=== PATIENT | female | born 2000 | race Caucasian/White ===

== ENCOUNTER 2023-07-22 | Inpatient (IN) | payer BC, SELFPAY ==
[2023-07-21 22:54] VITALS: BP 138/82; PULSE 55; PULSE 58; RESP 16; TEMP 37.2; O2SAT 98
[2023-07-21 23:49] LABS: Amnisure Rom* POSITIVE
[2023-07-22] VITALS (37 sets, daily range): BP systolic 97–138; BP diastolic 54–90; PULSE 50–97; RESP 14–16; TEMP 36.6–36.9; O2SAT 96–100
--- NOTE | 2023-07-22 00:03 | PM.OBHPLI ---
OB - H&P: HPI Labor/Induction History of Present Illness Date Seen: 07/22/23 Chief Complaint: The patient is a 23 year old 2 para 1 at 38+2 weeks gestation by US dating, who presents with painful regular contractions and had SROM while in triage. Chief complaint: maternity : 2 Para: 1 Narrative: Celso Hagan is a 23 year old at 38+2 weeks by first trimester US dating who began having regular contractions every 5-10 minutes around 6 pm. Upon arrival to labor and delivery, contractions palpating mild, cervix 1 cm dilated, posterior, 0 station per RN. While being monitored for cervical change, she had SROM of clear fluid with + amnisure. Her contractions are now more intense since SROM. She has a history of preeclampsia with severe features with her first , she has been on prophylactic ASA throughout this . No headache, vision changes, epigastric/RUQ pain or swelling. Home BP monitoring has been within normal range. History of Present Dating criteria: based on 1st trimester US only care: good care Ultrasounds: normal 1st trimester US and normal mid trimester US Medical complications: none Labs Blood type: A (+) positive Rubella: immune RPR/VDLR: nonreactive GBS status: negative HBsAG: negative Review of Systems Status of ROS: Reports: 6 or more systems reviewed and unremarkable except as noted in History and below Meds Home Medications and Allergies Home Medications Medication Instructions Recorded Confirmed Type aspirin 81 mg tablet,delayed 81 mg PO QDAY 04/02/23 07/21/23 History release (Adult Aspirin Regimen) fluoxetine 20 mg capsule 20 mg PO QDAY 04/02/23 07/21/23 History vits no.126-ferrous fum 1 tab PO QDAY 04/02/23 07/21/23 History 28 mg iron-folic acid 800 mcg tablet (Classic ) Allergies Allergy/AdvReac Type Severity Reaction Status Date / Time No Known Drug Allergies Allergy Verified 07/05/23 08:32 OB - H&P: Exam Physical Exam: Vital signs: Temp Pulse Resp BP Pulse Ox 98.9 F 55 L 16 138/82 98 07/21/23 22:54 07/21/23 22:54 07/21/23 22:54 07/21/23 22:54 07/21/23 22:54 Constitutional: Constitutional: no acute distress Routine HEENT Exam: Head: Present atraumatic Eye: Present EOMI and PERRL ENT: Present mucous membranes moist Routine Neck Exam: Neck: Present full ROM Routine Respiratory Exam: Respiratory: Present CTA bilaterally Routine Cardiovascular Exam: Cardiovascular: RRR Comments: no murmur Detailed Labor and Delivery Exam: Patient Gravid: Yes Dilation (cm): 1 Cervix position: posterior Contraction frequency (min): 3 Fetus (Single): Station: 0 Heart Rate Baseline: 140 Monitor Accelerations: Present Monitor Decelerations: None Accountant Machine Processing Variability: Moderate (6-25) Routine Extremities Exam: Comments: no swelling or tenderness Routine Skin Exam: Present intact and normal turgor Routine Neurological Exam: Present alert, oriented X3 and CN II-XII intact Routine Psychiatric Exam: Present normal affect and normal thought process OB - Problem Based A/P Additional Plan (1) Term : Status: Acute (2) SROM (spontaneous rupture of membranes): Status: Acute (3) History of severe pre-eclampsia: Status: Acute Plan Term with SROM. Consult human resource analyst for repeat Delivery/Labor/Induction Plan Plan: Section
[2023-07-22] MEDS: LACTATED RINGERS 1000 ML 1,000 ML 1200 ML IV (00:15)
--- NOTE | 2023-07-22 00:31 | PM.OBCN1 ---
OB - CN: HPI Date of Consult Time Seen by Provider: 00:31 Date Seen: 07/22/23 Patient: [facility]oni Patient Consult date: 07/22/23 Requesting Physician: Gretchen Jang MD Primary Care Provider: Gretchen Jang MD Consult Narrative Narrative: Ms. Hagan is a 23yo admitted for RAMONITA with SROM at 38w2d GA. She is an established patient of [facility], Ob consulted by Dr. Jang for . is complicated by history of preeclampsia with SF necessitating delivery at 32 weeks in prior and prior delivery. Full H&P will be dictated by Dr. Jang today, prior Ob consult notes by Drs. La and Maryjo. [facility] of regular/painful contractions tonight at 1900. At present, they are occurring every 2-5 minutes and rated 8/10 in severity. She has associated emesis with contractions. Denies vaginal bleeding. SROM occurred in triage with clear fluid, bloody show. Endorses active movement. Ultrasounds: 01/01/2023 crown-rump length corresponding to 9 weeks, 6 days, sonographic JALEEL 07/30/2023. Small subchorionic hemorrhage measuring 2.5 cm in greatest dimension. 03/17/2023: EFW 37%, normal anatomy, anterior placenta without previa. 07/08/23: 2688g, 34[facility]ile at [facility] History History 2 Elective abortions Para 2 Spontaneous abortions Hx # Term Pregnancies Ectopic pregnancies Hx # Pregnancies Multiple births Number of Living Children 1 Labs Blood type: A (+) positive Rubella: immune RPR/VDLR: nonreactive GBS status: negative HBsAG: negative PFSH PFSH Medical History (Updated 07/22/23 @ 00:10 by Gretchen Jang MD) Depression ?F32.A - Depression, unspecified (ICD-10) Surgical History (Updated 07/22/23 @ 00:10 by Gretchen Jang MD) History of ?Z98.891 - History of uterine scar from previous surgery (ICD-10) Social History What is your current living situation?: I presently have a place to live Problems where you live: no known problems In the past 12 months, utilities in danger of being shut off: no In past 12 months, lack of transportation kept you from medical appts, meetings, work, or getting things needed for daily living: no In the past 12 mos, have been you worried that your food would run out before you had money to buy more?: never true In the past 12 mos, the food you bought just didn't last and you didn't have money to buy more?: never true Smoking Status: Current some day smoker How often does anyone, including family, friends and others, physically hurt you: never How often does anyone, including family, friends and others, insult or talk down to you: never How often does anyone, including family, friends and others, threaten you with harm: never How often does anyone, including family, friends and others, scream or curse at you: never Meds Home Medications and Allergies Home Medications Medication Instructions Recorded Confirmed Type aspirin 81 mg tablet,delayed 81 mg PO QDAY 04/02/23 07/21/23 History release (Adult Aspirin Regimen) fluoxetine 20 mg capsule 20 mg PO QDAY 04/02/23 07/21/23 History vits no.126-ferrous fum 1 tab PO QDAY 04/02/23 07/21/23 History 28 mg iron-folic acid 800 mcg tablet (Classic ) Allergies Allergy/AdvReac Type Severity Reaction Status Date / Time No Known Drug Allergies Allergy Verified 07/05/23 08:32 OB - H&P: Exam Physical Exam: Vital signs: Temp Pulse Resp BP Pulse Ox 98.9 F 55 L 16 138/82 98 07/21/23 22:54 07/21/23 22:54 07/21/23 22:54 07/21/23 22:54 07/21/23 22:54 Narrative: General: Alert and oriented, in pain with contractions. Intermittent emesis. Abdomen: Gravid. Non-tender to palpation throughout. Fetus palpates cephalic, EFW 3000g by Chuck's. Prior Pfannensteil incision is noted to be 1.5 cm above the pubic symphysis. It is shifted to right of midline, downward slanting toward her ASIS. Midline to right sided keloid is noted. The right superior margin is somewhat raised above the level of incision. Cervix: 1/posterior/0 per RN exam Amnisure positive. OB - CN: A/P Assessment and Plan (1) Term : Status: Acute (2) SROM (spontaneous rupture of membranes): Status: Acute (3) History of severe pre-eclampsia: Status: Acute Plan Ms. Hagan is a 23yo at 38w2d GA admitted for repeat in the setting of spontaneous onset of labor with SROM. is complicated by prior and history of preE with severe features necessitating delivery at 32 weeks. She is an established patient of [facility], please see Dr. Jang's H&P note for complete details. She has been seen by Drs. La and Maryjo antenatally. She notes she is dissatisfied with her prior incision, due to it slanting and being raised. She specifically points to superior to the right margin as a site that bothers her as it is raised, explained this elevated subcutaneous tissue superior to the incision unlikely to be changed with a scar revision. I can certainly excise her prior scar and perform scar revision, but explained the limitations of revising the location/angle of her prior incision and that a keloid may form. Ultimately, Celso notes this is not a great priority of hers and will defer potential scar revision to my decision intraoperatively. - Proceed with repeat delivery - Perioperative ancef and azithromycin - Admission CBC and T/S pending - BT A+ - GBS negative
[2023-07-22 00:32] LABS: Basophils Absolute Auto 0.02 K/uL (0.00-0.30); Basophils Percent Auto 0.2 % (0.0-3.0); Eosinophils Absolute Auto 0.03 K/uL (0.00-0.50); Eosinophils Percent Auto 0.3 % (0.0-7.0); Hemoglobin* 12.8 gm/dL (12.0-16.0); Immature Granulocytes Abs Auto 0.02 K/uL (0.00-0.30); Immature Granulocytes Pct Auto 0.2 %; Lymphocytes Absolute Auto 2.79 K/uL (0.90-2.90); Lymphocytes Percent Auto 26.1 % (20-44); Mean Corpuscular HGB Conc 35 gm/dL (32-36); Mean Corpuscular Hemoglobin 31 pg (26-34); Mean Corpuscular Volume 91 fL (80-100); Monocytes Percent Auto 6.7 % (0.0-11.0); Neutrophils Absolute Auto 7.09 K/uL (1.7-7.0); Neutrophils Percent Auto 66.5 % (42.0-72.0); Platelet Count* 244 K/uL (140-440); RDW Coefficient of Variation % 11.9 % (11.5-15.5); Red Blood Count 4.07 m/uL (4.00-5.20); White Blood Count* 10.67 K/uL (4.50-11.00)
[2023-07-22 00:43] LABS: Slide Review Reflex No
[2023-07-22] MEDS: AZITHROMYCIN 500 MG in 0.9 % SODIUM CHLORIDE 250 ml 250 ML 255 MG IVPB (01:21)
[2023-07-22] MEDS: CEFAZOLIN 2 GM INJ IVP (01:22)
[2023-07-22] MEDS: LACTATED RINGERS 1000 ML 1,000 ML 100 ML IV (01:26)
--- NOTE | 2023-07-22 02:34 | P.OBPRC_ITS ---
Procedure Time Seen by Provider: 02:34 Date of procedure: 07/22/23 Pre-op diagnosis: 38 weeks, prior , spontaneous onset of labor Post-op diagnosis: same Procedure Done: only Will [facility] bill your pro fee for this procedure?: Yes Blood Loss Measurement Type: QBL (8985) Bakri Used: No IV fluids (mL): 1,700 Urine Output (mL): 25 Surgeon: Susan Zuniga MD Anesthesia Type: Spinal Findings: Moderate adhesive disease between rectus abdominis muscles and fascia Unremarkable uterus, bilateral fallopian tubes and ovaries, no significant intraabdominal adhesions Procedure Name: Repeat delivery Procedure Description: Patient was taken to the operating room with IV running. She received cefazolin and azithromycin in preoperative prophylaxis. Spinal anesthesia was administered. Trejo catheter was inserted. She was prepped and draped in the usual sterile fashion. Anesthesia was tested and found to be adequate. Prior Pfannenstiel incision was noted to be shifted to the right and to be quite low. Planned incision was marked to be more midline (though still slightly shifted to right as to not create an even larger incision) and superior along her prior Pfannenstiel site. A low-transverse skin incision was made with a scalpel and carried through to the underlying layer of fascia with the scalpel. The subcutaneous fat was dissected off the underlying fascia with Bovie and blunt dissection. The fascia was nicked in the midline with a scalpel, and this incision was extended laterally with scissors. The rectus muscles were noted to be adhered to rectus fascia with frayed musculature in areas. The rectus muscles were in the midline. Peritoneum was identified and entered bluntly. Bovie was used to widen this opening laterally. Rikki O retractor was inserted and tightened down, providing excellent visualization of the lower uterine segment. The bladder reflection was found to be advanced along the lower uterine segment. A bladder flap was created with a combination of sharp and blunt dissection. Low-transverse uterine incision was made with a scalpel. Incision was widened bluntly. The infant's head was grasped through the hysterotomy and elevated to the hysterotomy, delivered with aid of fundal pressure. The remainder of the body delivered without incident with the help of fundal pressure. No nuchal cord was noted. Cord was clamped and cut after 30 seconds. was handed off to attending nurses. The placenta was delivered with gentle traction on the cord. The uterus was exteriorized and cleaned of all clots and debris with a dry lap pad. The hysterotomy was reapproximated with 0 Vicryl in a running, locked fashion. A small arterial vessel was noted to be bleeding just inferior and lateral to right hysterotomy margin, where an interrupted stitch was applied around this for hemostasis. Uterine atony was noted, treated with IM methergine and IV TXA. Second layer of the same suture was used in imbricating fashion to obtain hemostasis. The uterus was reintroduced to the abdominal cavity. Oozing was noted at the midline hysterotomy, where two additional figure of eight sutures were applied. Excellent hemostasis was noted. The adnexa were examined and noted to be normal in appearance. The cul-de-sac and gutters were cleansed with dampened laparotomy sponge, removing any further clots and debris. Patient had significant nausea and vomiting throughout case, making visualization challenging. She was treated with zofran, dexamethasone and eventually haldol per HARVEST CREW SUPERVISOR to aid with emesis. Hysterotomy was reexamined and found to be hemostatic. The Rikki O retractor was removed. The hysterotomy was again examined and noted to be dry, Joseluis applied across hysterotomy. The rectus fascia was elevated and underlying muscles were sequentially examined and hemostasis was assured with aid of electrocautery. A fish was utilized to protect underlying intraabdominal contents. The fascia was reapproximated with 0 Vicryl in a running fashion. Fish removed prior to completion of fascia closure. Subcutaneous fat was irrigated and Bovie used on oozing vessels. The subcutaneous fat was reapproximated with 2 0 vicryl suture in an interrupted fashion. Patient ultimately desired to defer scar revision as was previously planned due to nausea, vomiting and discomfort intraoperatively. The skin was closed with a subcuticular stitch of 3-0 monocryl. Surgical glue was applied above this. Patient tolerated procedure well was taken to recovery area in stable condition. Surgical debrief was completed. details: - Liveborn female fetus - weight: 2980g - APGARs were 8 and 9 at 1 and 5 minutes respectively Pathology: specimen obtained, sent to pathology Surgery Debrief Performed: Yes Condition: stable Disposition: floor total score - 1 minute: 8 total score - 5 minute: 9
--- NOTE | 2023-07-22 03:09 | W.ANESCHARGE ---
Anesthesia Charges Start Date/Time Anesthesia Start Date: 07/22/23 Anesthesia Start Time: 00:54 Stop Date/Time Anesthesia Stop Date: 07/22/23 Anesthesia Stop Time: 02:49 Summary Emergency: SENIOR INTEGRATION DEVELOPER
--- NOTE | 2023-07-22 03:10 | W.PM.NB ---
Nerve Block Nerve Block Time Seen by Provider: 02:35 Date Seen: 07/22/23 Type of block requested by surgeon for post-operative analgesia: TAP Side: bilateral Time out performed: Yes Verification of patient name: Yes Verification of date of : Yes Site marking: site marked Name of person performing procedure: Rick Mitchell Continuous monitoring Was continuous monitoring of O2 sat, B/P, three dimensional map modeler, recorded every 15 minutes?: Yes Procedure Checklist: sterile prep, needles and gloves Ultrasound guided. Images saved: Yes Medications given in 5ml increments after negative aspiration: Marcaine %: 0.25 mL: 30 Needle gauge: 20 and Exparel mL: 10 Needle gauge: 20 Patient tolerated procedure well: Yes Additional comments: Injected in 5 mL increments after negative aspiration Block Charges Block Charge (with Pro Fee): TAP Bilateral Use of Ultrasound Machine for Block: Yes- US Guidance/pain block
[2023-07-22] MEDS: KETOROLAC 30 MG/ML inj IVP ×3 (09:13→20:15)
[2023-07-22] MEDS: DOCUSATE SODIUM 100 MG CAPSULE PO (09:15)
[2023-07-22 11:20] LABS: Hemoglobin* 11.4 gm/dL (12.0-16.0)
[2023-07-22] MEDS: LACTATED RINGERS 1000 ML 1,000 ML 125 ML IV (12:14)
[2023-07-22] MEDS: ACETAMINOPHEN 500 MG TABLET 1000 MG PO ×2 (13:31→23:07)
[2023-07-22] MEDS: SODIUM CHLORIDE 0.9 % (FLUSH) 10 ML SYRINGE IVF ×2 (16:14→20:15)
[2023-07-23 00:11] VITALS: RESP 16; O2SAT 98
[2023-07-23 01:11] VITALS: RESP 16; O2SAT 97
[2023-07-23 04:00] VITALS: BP 139/80; PULSE 70; RESP 16; TEMP 36.9; O2SAT 98
[2023-07-23 06:00] LABS: Hemoglobin* 9.3 gm/dL (12.0-16.0)
[2023-07-23 07:30] VITALS: BP 118/71; PULSE 59; RESP 16; TEMP 36.8; O2SAT 97
--- NOTE | 2023-07-23 07:50 | PM.OBPNVD1 ---
OB - PN:Subj Subjective Time Seen by Provider: 07:50 Date Seen: 07/23/23 Narrative: Overnight patient had fatigue but feeling much better. Her pain is well controlled on oral pain medications. She is tolerating a regular diet. She has passed flatus. Has not had a bowel movement. She is ambulating without difficulty. Lochia is scant. She is urinating without bal. Patient denies chest pain, SOB, n/v, headache, RUQ pain, vision changes, dizziness. We discussed her scar revision. Incision is much more midline. Unsure if she will keloid this time around. Given that the incision is much more midline and consistent with where a Pfannenstiel incision generally would be, I suspect that will be able to do a full scar revision with her next repeat . She is happy with this plan. They are thinking of only having 3 children. OB - PN: Obj Exam Physical Exam: Vital signs: Temp Pulse Resp BP Pulse Ox O2 Del Method 98.5 F 70 16 139/80 98 Room Air 07/23/23 04:00 07/23/23 04:00 07/23/23 04:00 07/23/23 04:00 07/23/23 04:00 07/23/23 04:00 Narrative: Physical exam: General: No acute distress Psych: Alert and oriented x4, full affect HEENT: Normocephalic, atraumatic Heart: Regular rate and rhythm, no murmur rub or gallop Lungs: Clear to auscultation bilaterally Abdomen: Normoactive bowel sounds, soft, no tenderness, rebound, or guarding Incision: Mepilex dressing removed. Appropriately tender to palpation. Clean, dry, and intact. No erythema, induration, or abnormal discharge/breakdown. Incision is much more midline than previous. Skin: No lesions or rashes Lower extremities: No edema or erythema Pelvic exam: No blood on pad Urinary Catheter Management: Urethral: Cath placed during this visit: yes, but has since been removed by the nurse Reason for continuing: surgical procedure Insertion date: 07/22/23 Insertion time: 01:23 Removal date: 07/22/23 Removal time: 17:00 OB - PN: Obj Data Labs Labs: Laboratory Results - last 24 hr 07/22/23 07/23/23 11:09 05:55 Hgb 11.4 L 9.3 L OB - PN: A/P Delivery Assessment and Plan (1) delivery delivered: Status: Acute Plan Postoperative/post delivery Review: - Admitted for: SROM - Surgical procedure: Repeat delivery - Skin incision: Pfannenstiel - Closure: sutures - Quantitative blood loss: 1165 mL - Intraoperative Complications: Intraoperative hemorrhage due to uterine atony - Urine output: adequate - Preop/pre delivery Hgb: 11.4 - Postop/post delivery Hgb: 9.3 Postoperative care: - Diet: Advance as tolerated - Fluid: Encourage oral intake - Activity: Encourage ambulation and incentive spirometry - Pain: Acetaminophen, Ibuprofen, and oxycodone - DVT prophylaxis: SCDs and TEDs when not ambulating. Discharge Planning - Follow up in 5-7 days for incision check in clinic - Follow Up: follow-up at 2 weeks and 6 weeks in clinic Baby's Status - Fetus: 8, 9 g, female - Location: Bedside Dispo: Patient is POD#1. Anticipate discharge POD#2.
[2023-07-23] MEDS: DOCUSATE SODIUM 100 MG CAPSULE PO (07:51)
[2023-07-23] MEDS: KETOROLAC 30 MG/ML inj IVP (07:52)
[2023-07-23 13:02] LABS: Rapid Plasma Reagin (RPR) Non Reactive (Non Reactive)
[2023-07-23] MEDS: ACETAMINOPHEN 500 MG TABLET 1000 MG PO (15:24)
[2023-07-23 16:58] VITALS: BP 107/72; PULSE 69; RESP 17; TEMP 37.2; O2SAT 98
[2023-07-23 20:36] VITALS: BP 128/87; PULSE 56; RESP 16; TEMP 36.7; O2SAT 97
[2023-07-23] MEDS: IBUPROFEN 600 MG TABLET PO (20:41)
[2023-07-24] MEDS: IBUPROFEN 600 MG TABLET PO ×2 (03:12→10:19)
[2023-07-24 03:14] VITALS: BP 138/87; PULSE 55; RESP 16; TEMP 36.8; O2SAT 98
[2023-07-24 08:19] VITALS: BP 131/80; PULSE 59; RESP 16; TEMP 36.8; O2SAT 97
[2023-07-24] MEDS: DOCUSATE SODIUM 100 MG CAPSULE PO (10:24)
--- NOTE | 2023-07-24 10:29 | P.DS_ITS ---
DS: Providers Provider Time Seen by Provider: 10:15 Date Seen: 07/24/23 Date of admission: 07/22/23 00:00 Primary care physician: Gretchen Jang MD Admitting Clinician: Gretel Zuniga MD Attending Physician on discharge: Honey Villavicencio MD Date of Discharge: 07/24/23 Exam Const: Vital Signs, click to edit/add: Vital Signs - 24 hr 07/23/23 16:58 07/23/23 20:36 07/24/23 03:14 Temperature 99 F 98.1 F 98.3 F Pulse Rate [Pulse Oximeter] 69 56 L 55 L Respiratory Rate 17 16 16 Blood Pressure [Le ft Arm] 107/72 128/87 138/87 Pulse Oximetry 98 97 98 Oxygen Delivery Me thod Room Air Room Air Room Air 07/24/23 08:19 Temperature 98.3 F Pulse Rate [Pulse Oximeter] 59 L Respiratory Rate 16 Blood Pressure [Le ft Arm] 131/80 Pulse Oximetry 97 Oxygen Delivery Me thod Room Air Documenting provider has reviewed patient's vital signs: yes Common normals: no apparent distress and oriented x3 General appearance: cooperative and comfortable HENMT: Common normals: normocephalic Head and scalp: normocephalic Resp: Common normals: normal respiratory effort Cardio: Common normals: regular rate and regular rhythm Rate: regular rate Rhythm: regular rhythm GI: Common normals: soft to palpation and non-tender Inspection: incision (Clean, dry, intact, mild ecchymoses) Palpation: soft : Uterus: U/2 Lochia: scant Uterus palpation: uterus nontender Extremity: Common normals: normal to inspection and no pedal edema Neuro: Common normals: oriented x3 Psych: Common normals: affect normal OB - DS: Summary Hospital Course Hospital Course: The patient is a 23 year old G 2 now P 1102 admitted at 38 2/7 weeks gestation on 07/22/23 for SROM and labor. She had an uncomplicated repeat delivery. She delivered a viable female infant. She is breast feeding. the patient has done well. Her pain control has been adequate on Tylenol and ibuprofen. Vital signs have been stable. Peripartum Data Infant delivery method: Repeat Section Procedures: Procedures Operation Date: 07/22/23 00:45 Actual Procedure Side Surgeon p repeat Section Gretel Zuniga MD complications: none [place] Gender: Female Infant Discharge Plan: Home [place] A Gender: Female Infant Discharge Plan: Home Time Spent with Patient Time attestation: Total time spent providing and/or coordinating discharge services: Discharge Plan Discharge Disposition: Home, Self-Care Date of Admission: 07/22/23 00:00 Primary Care Provider: Gretchen Jang Condition: Stable Anticipated Discharge Date/Time: 07/24/23 10:33 Discharge Medications: New docusate sodium 100 mg Capsule 100 mg PO DAILY Qty: 30 0RF ibuprofen 600 mg Tablet 600 mg PO Q6H PRN (Reason: Pain) Qty: 30 0RF Continued fluoxetine 20 mg capsule 20 mg PO QDAY Classic 28 mg iron- 800 mcg tablet 1 tab PO QDAY Discontinued aspirin [Adult Aspirin Regimen] 81 mg tablet,delayed release (DR/EC) 81 mg PO QDAY Discharge Orders: Discharge Order (Routine); Ordered 07/24/23 Ordered By: Honey Villavicencio Patient Education: OB Over the Counter Medication Information, OB /Breast Feeding Additional Instructions: Discharge instructions were reviewed with the patient including signs and symptoms of infection and home going medications Lifting Restrictions: 20 pounds for 6 weeks No not submerge incision under water X 2 weeks? Nothing vaginally for 6 weeks: no tampons or intercourse Do not drive while taking narcotic pain medication(s) Off Work or School for 8 weeks Symptoms to report to doctor: * Bleeding that saturates more than one pad per hour * Passing clots larger than the size of a golf ball * Pain not relieved by prescribed medication * Fever above 100.4 degrees Fahrenheit * A foul vaginal odor * Difficulty in emotions, mood, and functions * Thoughts of hurting yourself and/or * Painful, reddened area in your breast * Any drainage, redness, or tenderness in your IV/epidural site * Severe headache that doesn't improve after taking medications * Changes in vision, including temporary loss of vision, blurred vision, and/or light sensitivity * Upper abdominal pain (usually under ribs on the right side) * Decrease in urination or painful, frequent urinating * Chest pain * Shortness of breath * Tenderness or pain with redness and/swelling in the calf(s) of your leg Optional 2-week visit: incision check, discuss feeding concerns, review control options and screen for anxiety/depression. 6-week visit for an annual exam. consultation services are available to all mothers and babies for the first year after delivery.? To make an appointment, please call [phone]. Activity Level: Activity as Tolerated Discharge Diet: Regular Follow Up Appointments: Gretchen Jang MD [Primary Care Provider] - Forms: [employer] Info Instructions DS:Data Additional Comments Additional comments: Hemoglobin 9.3.
== END 2023-07-24 12:00 | disposition home or self-care (01) | DRG 540 ==
LOC: OB OUT 00:24 → OB 00:24
PROVIDERS: Admitting Provider Obstetrics & Gynecology; PCP Family Medicine; Visit Provider Obstetrics & Gynecology
PROC: 10D00Z1 Extraction of Products of Conception, Low, Open Approach (ICD-10-PCS; CPT 59514; principal; 2023-07-22 00:30)
DX: O34.211 Maternal care for low transverse scar from previous cesarean delivery (principal); N85.8 Other specified noninflammatory disorders of uterus; O75.82 Onset (spontaneous) of labor after 37 completed weeks of gestation but before 39 completed weeks gestation, with delivery by (planned) cesarean section; O72.1 Other immediate postpartum hemorrhage; G89.18 Other acute postprocedural pain; Z3A.38 38 weeks gestation of pregnancy; Z37.0 Single live birth
CPT/HCPCS: 01961; 36415; 64488; 76942; 81003; 84112; 85018; 85025; 86592; 86850; 86900; 86901; 88307; 94761; 99140; A9270; C9290; J0456; J0665; J0690; J1100; J1885; J2210; J2274; J2371; J2405; J2590; J3010; J7050; J7120